=== PATIENT | male | born 1990 | race Caucasian/White ===

== ENCOUNTER 2021-03-21 18:15 | Emergency (ER) | payer BC ==
[2021-03-21] MEDS: Ketorolac 30 MG/ML SDV IM ONE ×2 (18:24→18:30)
[2021-03-21] MEDS ORDERED: Ibuprofen 600 MG Tab PO ONE (18:29)
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
[2021-03-21 21:23] VITALS: BP 144/90; PULSE 131
== END 2021-03-21 18:53 | disposition other institution (70) ==
LOC: FB.ED 18:15
DX: S01.01XA Laceration without foreign body of scalp, initial encounter (principal); Y04.0XXA Assault by unarmed brawl or fight, initial encounter
CPT/HCPCS: 99283; A9270; J1885

== ENCOUNTER 2021-05-31 21:38 | Emergency (ER) | payer BC ==
--- NOTE | 2021-05-31 21:57 | EDM.PDOC ---
ED HPI GENERAL MEDICAL PROBLEM - General Stated Complaint: GENERAL Time Seen by Provider: 05/31/21 21:54 Source of Information: Reports: Patient History Limitations: Reports: Uncooperative - History of Present Illness INITIAL COMMENTS - FREE TEXT/NARRATIVE: Jonh is a poor historian. HE chiefly complains of left hand numbness & tingling x 5 weeks. He also wanted to have his vital signs checked.He has a h/o anxiety,etoh abuse. - Related Data Allergies Allergy/AdvReac Type Severity Reaction Status Date / Time No Known Allergies Allergy Verified 03/21/21 21:06 Home Meds: Home Meds NK [No Known Home Meds] 07/20/16 [History] Past Medical History - Past Surgical History Other HEENT Surgeries/Procedures: TONSILLECTOMY Social & Family History - Family History Family Medical History: Unobtainable - Caffeine Use Caffeine Use: Reports: Coffee, Energy Drinks, Soda, Tea Review of Systems - Review of Systems Review Of Systems: Comprehensive ROS is negative, except as noted in HPI. ED EXAM, GENERAL - Physical Exam Exam: See Below Exam Limited By: No Limitations General Appearance: Anxious Head: Atraumatic Neck: Normal Inspection Respiratory/Chest: No Respiratory Distress Cardiovascular: Normal Peripheral Pulses, Regular Rate, Rhythm Neurological: Alert, Oriented Psychiatric: Anxious Skin Exam: Warm #1 Interpretation EKG Date: 05/31/21 Rhythm: NSR [place]: Normal P-Wave: Present QRS: Normal ST-T: Normal Departure - Departure Time of Disposition: 21:56 Disposition: Home, Self-Care 01 Clinical Impression: Carpal tunnel syndrome of left wrist - Discharge Information Referrals: PCP,None [Primary Care Provider] - - Problem List & Annotations (1) Carpal tunnel syndrome of left wrist SNOMED Code(s): 79569551 Code(s): G56.02 - CARPAL TUNNEL SYNDROME, LEFT UPPER LIMB Status: Acute Current Visit: Yes - Problem List Review Problem List Initiated/Reviewed/Updated: Yes - Assessment/Plan Plan: Brace given.DC home. Follow with hand surgery
[2021-05-31 23:10] VITALS: BP 138/93; PULSE 89
== END 2021-05-31 22:45 | disposition home or self-care (01) ==
LOC: FB.ED 21:38
DX: G56.02 Carpal tunnel syndrome, left upper limb (principal)
CPT/HCPCS: 93005; 99284-25

== ENCOUNTER 2023-02-28 20:37 | Emergency (ER) | payer BC ==
[2023-02-28 22:17] VITALS: BP 148/98; PULSE 131
== END 2023-02-28 21:05 ==
LOC: FB.ED 20:37
DX: S09.93XA Unspecified injury of face, initial encounter (principal); Y04.0XXA Assault by unarmed brawl or fight, initial encounter
CPT/HCPCS: 99284

== ENCOUNTER 2023-04-30 17:44 | Emergency (ER) | payer BC ==
[2023-04-30 17:59] VITALS: BP 127/91; PULSE 112
== END 2023-04-30 18:18 ==
LOC: FB.ED 17:44
DX: Z02.89 Encounter for other administrative examinations (principal); F10.929 Alcohol use, unspecified with intoxication, unspecified
CPT/HCPCS: 99283

== ENCOUNTER 2023-05-19 23:31 | Emergency (ER) | payer OTHER, BC, MEDICAID ==
[2023-05-20 00:21] VITALS: BP 146/97; PULSE 133
== END 2023-05-20 00:10 ==
LOC: FB.ED 23:31
DX: S16.1XXA Strain of muscle, fascia and tendon at neck level, initial encounter (principal); V49.49XA Driver injured in collision with other motor vehicles in traffic accident, initial encounter
CPT/HCPCS: 99283

== ENCOUNTER 2023-06-11 18:27 | Emergency (ER) | payer OTHER, BC ==
[2023-06-11] MEDS ORDERED: Diphtheria,Pertussis(Acell),Tetanus Vaccine 0.5 ML Syringe IM ONE (19:16)
[2023-06-11 22:36] VITALS: BP 152/83; PULSE 90
== END 2023-06-11 21:37 ==
LOC: FB.ED 18:27
DX: S61.216A Laceration without foreign body of right little finger without damage to nail, initial encounter (principal); S60.211A Contusion of right wrist, initial encounter; F17.210 Nicotine dependence, cigarettes, uncomplicated; Z86.16 Personal history of COVID-19; Z23 Encounter for immunization; W23.0XXA Caught, crushed, jammed, or pinched between moving objects, initial encounter
CPT/HCPCS: 12001; 73110-RT; 73130-RT; 90471; 90715; 99282; 99284-25